=== PATIENT | male | born 1975 | race Two or more races ===

== ENCOUNTER 2019-09-11 14:28 | Inpatient (IN) | payer MEDICAID ==
[~2019-09-11] VITALS: Ht 185.4 cm; Wt 124.8 kg
[~2019-09-11 14:28] MED LIST: AMLO10TA8 PO; ASPI-430 PO; HYDR-3342 PO; HYDR25TA6 PO; LISI-167 PO; METO100T5 PO
[2019-09-11] MEDS ORDERED: ASPIRIN 81 MG TABLET CHEW ONE (14:44)
[2019-09-11] MEDS ORDERED: ASPIRIN 81 MG TABLET CHEW PO ONE (15:00)
[2019-09-11 15:05] LABS: BASOPHILS # (AUTO) 0.07 x10^3/uL (0-0.1); BASOPHILS % (AUTO) 1 % (0-1); EOSINOPHILS # (AUTO) 0.13 x10^3/uL (0-0.4); EOSINOPHILS % (AUTO) 1 % (1-7); LYMPHOCYTES # (AUTO) 1.58 x10^3/uL (1-3.4); LYMPHOCYTES % (AUTO) 17 % (22-44); MD NO; MEAN CORPUSCULAR HEMOGLOBIN 29.3 pg (27.5-34.5); MEAN CORPUSCULAR HGB CONC 32.1 g/dL (33.2-36.2); MEAN CORPUSCULAR VOLUME 91.3 fL (81-97); MEAN PLATELET VOLUME 9.3 fL (7.4-10.4); MONOCYTES # (AUTO) 0.69 x10^3/uL (0.2-0.8); MONOCYTES % (AUTO) 8 % (2-9); NEUTROPHILS # (AUTO) 6.84 x10^3/uL (1.8-6.8); NEUTROPHILS % (AUTO) 74 % (42-75); PLATELET COUNT 432 x10^3/uL (130-400); RED CELL DISTRIBUTION WIDTH 13.7 % (9.4-14.8)
--- NOTE | 2019-09-11 15:05 | NUR ---
FIRST CONTACT WITH PT. OPERATING EQUIPMENT AT WORK, "BLACKED OUT", FELL. C/O OF LEFT SIDED CHEST PAIN. PT'S AOX4. RESPS EVEN AND UNLABORED. DENIES N/V/D. PT C/O DZY WELL. ALL MONITORS IN PLACE. CALL LIGHT WITHIN REACH. EDMD AT BEDSIDE TO EVALUATE AT THIS TIME.
--- NOTE | 2019-09-11 15:09 | NUR ---
PT MEDICATED PER EMAR. PT TOLERATED WELL.
[2019-09-11 15:17] LABS: ALANINE AMINOTRANSFERASE 20 U/L (12-78); ALBUMIN 3.6 g/dL (3.4-5.0); ANION GAP 8 mmol/L (5-15); CHLORIDE 110 mmol/L (98-107); CREATININE 3.61 mg/dL (0.7-1.3)
[2019-09-11 15:22] LABS: ALKALINE PHOSPHATASE 109 U/L (45-117); BILIRUBIN,TOTAL 0.6 mg/dL (0.2-1.0); TOTAL PROTEIN 8.1 g/dL (6.4-8.2); TROPONIN I < 0.015 ng/mL (0.000-0.045)
--- NOTE | 2019-09-11 15:22 | NUR ---
NS INFUSING AT THIS TIME. PT TOLERATED WELL.
[2019-09-11] MEDS ORDERED: INSU100I42 SQ-INSULIN (15:24)
[2019-09-11] MEDS ORDERED: ATOR40TA78 PO (15:25)
[2019-09-11] MEDS ORDERED: ALLO300T PO (15:25)
[2019-09-11] MEDS ORDERED: TICA90TA PO (15:26)
[2019-09-11] MEDS ORDERED: INSU100I34 SQ-INSULIN (15:27)
[2019-09-11] MEDS ORDERED: CARV12.52 PO (15:27)
[2019-09-11] MEDS ORDERED: GABA600T7 PO (15:28)
[2019-09-11] MEDS ORDERED: NITR0.6T4 SL (15:29)
[2019-09-11] MEDS ORDERED: SPIR50TA4 PO (15:29)
[2019-09-11] MEDS ORDERED: SODIUM CHLORIDE 0.9% 1,000ML IVBOLUS ONE (15:30)
[2019-09-11] MEDS ORDERED: DULA1.5P SQ (15:31)
--- NOTE | 2019-09-11 16:28 | NUR ---
PT RESTING IN [facility]. PT'S AOX4. RESPS EVEN AND UNLABORED. ALL MONITORS IN PLACE. CALL LIGHT WITHIN REACH.
[2019-09-11] MEDS ORDERED: SODIUM CHLORIDE 0.9% 1,000 ML IV SCH (16:51)
[2019-09-11] MEDS ORDERED: NITROGLYCERIN 0.4 MG BC PRN (17:00)
[2019-09-11] MEDS ORDERED: ONDANSETRON ODT 4 MG PO PRN (17:00)
[2019-09-11] MEDS ORDERED: Dulaglutide (Trulicity) 1.5 MG) SQ SCH (17:00)
[2019-09-11] MEDS ORDERED: ONDANSETRON 2MG/ML, 2ML IVPush PRN (17:00)
[2019-09-11] MEDS ORDERED: HEPARIN 5,000 UNITS/ML, 1ML ONE (17:10)
[2019-09-11] MEDS ORDERED: ACETAMINOPHEN 325 MG TABLET ONE (17:10)
[2019-09-11] MEDS: ACETAMINOPHEN 325 MG TABLET PO SCH ×2 (17:19→22:53)
[2019-09-11] MEDS: HEPARIN 5,000 UNITS/ML, 1ML SQ SCH (17:19)
--- NOTE | 2019-09-11 17:24 | NUR ---
PT MEDICATED PER EMAR. PT TOLERATED WELL. PT'S AOX4. RESPS EVEN AND UNLABORED. NS INFUSING AT THIS TIME.
--- NOTE | 2019-09-11 17:30 | NUR ---
REPORT GIVEN TO DANIA PRIEST. ALL QUESTIONS ANSWERED.
[2019-09-11] MEDS: GLARGINE INSULIN MC SCH (18:29)
[2019-09-11] MEDS ORDERED: AMLO10TA8 PO (19:53)
[2019-09-11] MEDS ORDERED: CARV6.25 PO (19:53)
[2019-09-11] MEDS ORDERED: CHOL2000 PO (19:53)
[2019-09-11 20:00] VITALS: BP 110/75
[2019-09-11 20:03] VITALS: BP 87/52
[2019-09-11] MEDS: LISINOPRIL 40 MG TABLET PO SCH (20:48)
[2019-09-11 20:50] VITALS: BP 116/76
[2019-09-11] MEDS: INSULIN LISPRO 100 UNITS/ML, PEN SQ-INSULIN SCH (20:51)
[2019-09-11] MEDS ORDERED: ATORVASTATIN 80 MG TABLET PO SCH (21:00)
[2019-09-11] MEDS: TICAGRELOR 90 MG TABLET PO SCH (21:49)
[2019-09-12] MEDS: HEPARIN 5,000 UNITS/ML, 1ML SQ SCH ×2 (01:06→09:27)
[2019-09-12 01:07] VITALS: BP 95/62
[2019-09-12] MEDS: GLARGINE INSULIN MC SCH (01:50)
[2019-09-12] MEDS: ACETAMINOPHEN 325 MG TABLET PO SCH ×2 (04:29→11:20)
[2019-09-12 05:33] LABS: BASOPHILS # (AUTO) 0.08 x10^3/uL (0-0.1); BASOPHILS % (AUTO) 1 % (0-1); EOSINOPHILS # (AUTO) 0.18 x10^3/uL (0-0.4); EOSINOPHILS % (AUTO) 2 % (1-7); LYMPHOCYTES # (AUTO) 1.92 x10^3/uL (1-3.4); LYMPHOCYTES % (AUTO) 24 % (22-44); MD NO; MEAN CORPUSCULAR HEMOGLOBIN 29.4 pg (27.5-34.5); MEAN CORPUSCULAR HGB CONC 32.3 g/dL (33.2-36.2); MEAN CORPUSCULAR VOLUME 91.1 fL (81-97); MEAN PLATELET VOLUME 9.3 fL (7.4-10.4); MONOCYTES # (AUTO) 0.81 x10^3/uL (0.2-0.8); MONOCYTES % (AUTO) 10 % (2-9); NEUTROPHILS # (AUTO) 5.02 x10^3/uL (1.8-6.8); NEUTROPHILS % (AUTO) 63 % (42-75); PLATELET COUNT 397 x10^3/uL (130-400); RED BLOOD COUNT 3.89 x10^6/uL (4.38-5.82)
[2019-09-12 05:45] LABS: ANION GAP 3 mmol/L (5-15); CALCIUM 9.4 mg/dL (8.5-10.1); CHLORIDE 114 mmol/L (98-107); CREATININE 2.98 mg/dL (0.7-1.3)
[2019-09-12] MEDS ORDERED: SODIUM CHLORIDE 0.9% 1,000ML IVBOLUS ONE ×2 (06:30→12:00)
[2019-09-12 06:40] VITALS: BP 108/70
[2019-09-12] MEDS: INSULIN LISPRO 100 UNITS/ML, PEN SQ-INSULIN SCH ×2 (07:00→11:00)
[2019-09-12] MEDS ORDERED: ALLOPURINOL 100 MG TABLET PO SCH (09:00)
[2019-09-12] MEDS ORDERED: SPIRONOLACTONE 50 MG TABLET PO SCH (09:00)
[2019-09-12] MEDS ORDERED: CARVEDILOL 6.25 MG TABLET PO SCH (09:00)
[2019-09-12] MEDS ORDERED: GABAPENTIN 300 MG CAPSULE PO SCH (09:00)
[2019-09-12] MEDS ORDERED: INSULIN GLARGINE 100 UNITS/ML, PEN SQ-INSULIN SCH (09:00)
[2019-09-12] MEDS ORDERED: TICAGRELOR 90 MG TABLET PO SCH (09:00)
[2019-09-12] MEDS ORDERED: ASPIRIN 81 MG TABLET EC PO SCH (09:00)
[2019-09-12] MEDS ORDERED: CARVEDILOL 3.125 MG TABLET PO SCH (09:00)
[2019-09-12] MEDS: LISINOPRIL 40 MG TABLET PO SCH (09:26)
[2019-09-12] MEDS: TICAGRELOR 90 MG TABLET PO SCH (09:27)
[2019-09-12] MEDS ORDERED: GLARGINE INSULIN MC SCH (11:09)
[2019-09-12 11:21] VITALS: BP_SYST 116; BP_SYST 119; BP_DIAS 80; BP_DIAS 82
[2019-09-12 12:25] VITALS: BP 113/80
[2019-09-12] MEDS ORDERED: SPIR50TA PO (14:17)
[2019-09-12] MEDS ORDERED: ALLO100T30 PO (14:17)
[2019-09-12] MEDS ORDERED: CARV3.1212 PO (14:17)
[2019-09-12 15:40] VITALS: BP_SYST 114; BP_SYST 116; BP_DIAS 80; BP_DIAS 82
[2019-09-13] MEDS ORDERED: SPIRONOLACTONE 50 MG TABLET PO SCH (09:00)
== END 2019-09-12 16:00 | disposition home or self-care (01) | DRG 918 ==
LOC: ED 16:21 → EDIP 16:22 → ED 16:40 → 4EST 17:46 → DCLOUNGE 09-12 15:51
PROVIDERS: ADMIT Internal Medicine; ATTEND Family Medicine
DX: T46.5X1A Poisoning by other antihypertensive drugs, accidental (unintentional), initial encounter (principal); N17.9 Acute kidney failure, unspecified; I95.2 Hypotension due to drugs; I95.0 Idiopathic hypotension; S20.219A Contusion of unspecified front wall of thorax, initial encounter; D64.9 Anemia, unspecified; E11.9 Type 2 diabetes mellitus without complications; E87.5 Hyperkalemia; I25.10 Atherosclerotic heart disease of native coronary artery without angina pectoris; M10.9 Gout, unspecified; W19.XXXA Unspecified fall, initial encounter; E66.9 Obesity, unspecified; R79.89 Other specified abnormal findings of blood chemistry; I10 Essential (primary) hypertension; I25.2 Old myocardial infarction; Z82.49 Family history of ischemic heart disease and other diseases of the circulatory system; Z83.3 Family history of diabetes mellitus; Z95.5 Presence of coronary angioplasty implant and graft; Z68.36 Body mass index [BMI] 36.0-36.9, adult; Y93.89 Activity, other specified; Y92.89 Other specified places as the place of occurrence of the external cause; Y99.8 Other external cause status
CPT/HCPCS: 36415; 71046; 80048; 80053; 82962; 83036; 83880; 84484; 85025; 93005; 93306; 96360; 96361; 99285; G0378; J1644; J7030

== ENCOUNTER 2020-05-28 11:28 | Inpatient (IN) | payer MEDICAID ==
[~2020-05-28] VITALS: Ht 185.4 cm; Wt 114.1 kg
[~2020-05-28 11:28] MED LIST changes: +ALLO100T30 PO; +ALLO300T PO; +ATOR40TA78 PO; +CARV12.52 PO; +CARV3.1212 PO; +CARV6.25 PO; +CHOL2000 PO; +DULA1.5P SQ; +GABA600T7 PO; +INSU100I34 SQ-INSULIN; +INSU100I42 SQ-INSULIN; +NITR0.6T4 SL; +SPIR50TA PO; +SPIR50TA4 PO; +TICA90TA PO
--- NOTE | 2020-05-28 12:03 | NUR ---
C/O LIGHT HEADEDNESS, BRIGHT RED BM, ABD PAIN, AND CHEST PAIN SINCE YESTERDAY. PLACED ON VITALS AND CARDIAC MONITORS. AT BEDSIDE.
[2020-05-28] MEDS ORDERED: ONDANSETRON 2MG/ML, 2ML ONE (12:21)
[2020-05-28] MEDS ORDERED: FAMOTIDINE 20 MG/2 ML ONE (12:22)
[2020-05-28] MEDS ORDERED: PANTOPRAZOLE 40 MG IV ONE (12:23)
[2020-05-28] MEDS ORDERED: PLEASE ENTER ALLERGIES MC SCH (12:30)
[2020-05-28] MEDS ORDERED: MORPHINE SULFATE 4 MG/ML, 1ML IVPush PRN ×2 (12:30→17:00)
[2020-05-28] MEDS ORDERED: PANTOPRAZOLE 40 MG IV IVPush ONE (12:30)
[2020-05-28] MEDS ORDERED: SODIUM CHLORIDE FLUSH 10ML SYR IVF ONE (12:30)
[2020-05-28] MEDS ORDERED: FAMOTIDINE 20 MG/2 ML IVPush ONE (12:30)
[2020-05-28] MEDS ORDERED: SODIUM CHLORIDE 0.9% 1,000ML IVBOLUS ONE ×2 (12:30→13:00)
[2020-05-28] MEDS ORDERED: ONDANSETRON 2MG/ML, 2ML IVPush ONE (12:30)
[2020-05-28 12:32] LABS: MEAN CORPUSCULAR HGB CONC 31.9 g/dL (33.2-36.2); MEAN CORPUSCULAR VOLUME 87.8 fL (81-97); MEAN PLATELET VOLUME 9.5 fL (7.4-10.4); PLATELET COUNT 302 x10^3/uL (130-400); RED CELL DISTRIBUTION WIDTH 14.4 % (9.4-14.8)
[2020-05-28 12:34] LABS: INTERNATIONAL NORMALIZED RATIO 1.03 (0.93-1.1); PROTHROMBIN TIME 10.6 Seconds (9.6-11.5)
[2020-05-28 12:39] LABS: ALANINE AMINOTRANSFERASE 19 U/L (12-78); ALBUMIN 3.4 g/dL (3.4-5.0); ANION GAP 10 mmol/L (5-15); CALCIUM 8.5 mg/dL (8.5-10.1); CHLORIDE 111 mmol/L (98-107); CREATININE 3.75 mg/dL (0.7-1.3)
[2020-05-28 12:43] LABS: ALKALINE PHOSPHATASE 108 U/L (45-117); BILIRUBIN,TOTAL 0.5 mg/dL (0.2-1.0); TOTAL PROTEIN 6.9 g/dL (6.4-8.2); TROPONIN I < 0.015 ng/mL (0.000-0.045)
--- NOTE | 2020-05-28 12:43 | NUR ---
UPDATED ER PROVIDER BP 85/45 AFTER 1L BOLUS. PER PROVIDER REPEAT 1L NS BOLUS, ADMINISTERED ORDERED.
--- NOTE | 2020-05-28 13:04 | NUR ---
SECOND 1L NS DONE, BP 94/58.
[2020-05-28 13:14] LABS: BASOPHILS # (AUTO) 0.05 x10^3/uL (0-0.1); BASOPHILS % (AUTO) 1 % (0-1); EOSINOPHILS # (AUTO) 0.04 x10^3/uL (0-0.4); EOSINOPHILS % (AUTO) 1 % (1-7); LYMPHOCYTES # (AUTO) 1.45 x10^3/uL (1-3.4); LYMPHOCYTES % (AUTO) 17 % (22-44); MD SCAN; MONOCYTES # (AUTO) 0.58 x10^3/uL (0.2-0.8); MONOCYTES % (AUTO) 7 % (2-9); NEUTROPHILS # (AUTO) 6.45 x10^3/uL (1.8-6.8); NEUTROPHILS % (AUTO) 75 % (42-75)
[2020-05-28] MEDS ORDERED: SODIUM CHLORIDE 0.9% 1,000 ML IV ONE (13:30)
--- NOTE | 2020-05-28 13:58 | NUR ---
PT SLEEPING IN NAD, EVEN AND UNLABORED RESPIRATIONS. AT BEDSIDE.
--- NOTE | 2020-05-28 15:53 | NUR ---
CALL FROM [facility], PT IS SCHEDULED FOR COLONOSCOPY AND EGD WITH DR. WALLACE TOMORROW AT 1000AM.
[2020-05-28] MEDS ORDERED: GOLYTELY 4,000ML ORAL.SOL PO ONE (16:00)
--- NOTE | 2020-05-28 16:09 | NUR ---
BREAK RN: WARM BLANKET PROVIDED. NAD NOTED, CALL LIGHT W/I REACH
[2020-05-28] MEDS ORDERED: ONDANSETRON ODT 4 MG PO PRN (17:00)
[2020-05-28] MEDS ORDERED: ACETAMINOPHEN 325 MG TABLET PO PRN (17:00)
[2020-05-28] MEDS ORDERED: ENALAPRILAT 1.25 MG/ML, 2ML IVPush PRN (17:00)
[2020-05-28] MEDS ORDERED: ONDANSETRON 2MG/ML, 2ML IVPush PRN (17:00)
[2020-05-28] MEDS ORDERED: ZOLPIDEM 5MG TABLET PO PRN (17:00)
--- NOTE | 2020-05-28 17:24 | NUR ---
ELISA BRAXTON FROM PHARMACY.
[2020-05-28] MEDS: SODIUM CHLORIDE 0.9% 1,000 ML IV SCH ×2 (17:34→21:45)
--- NOTE | 2020-05-28 18:11 | NUR ---
REPORT GIVEN TO HUMA PRIEST.
[2020-05-28 19:46] VITALS: BP 126/85
[2020-05-28] MEDS: PANTOPRAZOLE 40 MG IV IVPush SCH (20:58)
[2020-05-28] MEDS: GABAPENTIN 300 MG CAPSULE PO SCH (20:58)
[2020-05-28] MEDS: CARVEDILOL 6.25 MG TABLET PO SCH (20:59)
[2020-05-28] MEDS ORDERED: ATORVASTATIN 80 MG TABLET PO SCH (21:00)
[2020-05-29 00:53] VITALS: BP 154/85
[2020-05-29] MEDS ORDERED: ASPI-515 PO (06:04)
[2020-05-29 06:09] LABS: BASOPHILS # (AUTO) 0.03 x10^3/uL (0-0.1); BASOPHILS % (AUTO) 1 % (0-1); EOSINOPHILS # (AUTO) 0.11 x10^3/uL (0-0.4); EOSINOPHILS % (AUTO) 2 % (1-7); LYMPHOCYTES # (AUTO) 1.79 x10^3/uL (1-3.4); LYMPHOCYTES % (AUTO) 29 % (22-44); MD NO; MEAN CORPUSCULAR HEMOGLOBIN 28.3 pg (27.5-34.5); MEAN CORPUSCULAR HGB CONC 32.2 g/dL (33.2-36.2); MEAN CORPUSCULAR VOLUME 87.9 fL (81-97); MEAN PLATELET VOLUME 9.3 fL (7.4-10.4); MONOCYTES # (AUTO) 0.52 x10^3/uL (0.2-0.8); MONOCYTES % (AUTO) 9 % (2-9); NEUTROPHILS # (AUTO) 3.62 x10^3/uL (1.8-6.8); NEUTROPHILS % (AUTO) 60 % (42-75); PLATELET COUNT 239 x10^3/uL (130-400); RED CELL DISTRIBUTION WIDTH 14.8 % (9.4-14.8)
[2020-05-29 06:13] LABS: ANION GAP 6 mmol/L (5-15); CALCIUM 8.4 mg/dL (8.5-10.1); CHLORIDE 116 mmol/L (98-107); CREATININE 1.99 mg/dL (0.7-1.3)
[2020-05-29] MEDS: SODIUM CHLORIDE 0.9% 1,000 ML IV SCH ×2 (06:56→17:45)
[2020-05-29 07:46] VITALS: BP 144/100
[2020-05-29] MEDS: CARVEDILOL 6.25 MG TABLET PO SCH (07:59)
[2020-05-29] MEDS: GABAPENTIN 300 MG CAPSULE PO SCH (07:59)
[2020-05-29] MEDS: PANTOPRAZOLE 40 MG IV IVPush SCH (07:59)
[2020-05-29] MEDS ORDERED: LISINOPRIL 40 MG TABLET PO SCH (09:00)
[2020-05-29] MEDS ORDERED: CHLORHEXIDINE 15 ML UDC ONE (10:26)
[2020-05-29] MEDS ORDERED: PROPOFOL 50 ML ONE (10:49)
[2020-05-29 14:08] VITALS: BP 141/98
== END 2020-05-29 19:38 | disposition home or self-care (01) | DRG 378 ==
LOC: ED 13:19 → EDIP 14:24 → 3N 17:26
PROVIDERS: ADMIT Internal Medicine; ATTEND Family Medicine
PROC: 0DB68ZX Excision of Stomach, Via Natural or Artificial Opening Endoscopic, Diagnostic (ICD-10-PCS; 2020-05-29)
PROC: 0DJD8ZZ Inspection of Lower Intestinal Tract, Via Natural or Artificial Opening Endoscopic (ICD-10-PCS; principal; 2020-05-29 10:00)
DX: K57.31 Diverticulosis of large intestine without perforation or abscess with bleeding (principal); D62 Acute posthemorrhagic anemia; E11.22 Type 2 diabetes mellitus with diabetic chronic kidney disease; E66.9 Obesity, unspecified; E78.5 Hyperlipidemia, unspecified; E86.1 Hypovolemia; I12.9 Hypertensive chronic kidney disease with stage 1 through stage 4 chronic kidney disease, or unspecified chronic kidney disease; I25.10 Atherosclerotic heart disease of native coronary artery without angina pectoris; K29.70 Gastritis, unspecified, without bleeding; K64.8 Other hemorrhoids; M10.9 Gout, unspecified; N18.2 Chronic kidney disease, stage 2 (mild); I25.2 Old myocardial infarction; Z68.33 Body mass index [BMI] 33.0-33.9, adult; Z79.02 Long term (current) use of antithrombotics/antiplatelets; Z95.5 Presence of coronary angioplasty implant and graft
CPT/HCPCS: 36415; J3490; 71045; 80048; 80053; 83880; 84484; 85018; 85025; 85610; 86850; 86900; 87635; 88305; 93005; G0378; J2405; J2704; C9113; J7030